=== PATIENT | female | born 1980 | race Caucasian/White ===

== ENCOUNTER 2018-06-20 14:21 | Emergency (ER) ==
[2018-06-20 14:31] VITALS: BP 122/86; TEMP 98.7; BMI 38.9
--- NOTE | 2018-06-20 15:00 | ED.PDOC ---
General ED Provider: Dr. CHERRI TENORIO Chief Complaint: Fall Stated Complaint: Slip/fall in bath last night - hit ribs R lower; also c/o 4 to 5 days UTI sx Time Seen by Physician: 14:58 Mode of Arrival: Walk-In Information Source: Patient Primary Care Provider: TOÑA COULTER Nursing and Triage Documentation Reviewed and Agree: Yes Does patient meet sepsis criteria?: No System Inflammatory Response Syndrome: Not Applicable Sepsis Protocol: For patient's 13 years and over: Temp is 96.8 and below OR 101 and greater Pulse >90 BPM Resp >20/minute Acutely Altered Mental Status Are patient's symptoms suggestive of a new infection, such as: -Pneumonia -Skin, Soft Tissue -Endocarditis -UTI -Bone, Joint Infection -Implantable Device -Acute Abdominal Infection -Wound Infection -Meningitis -Blood Stream Catheter Infection -Unknown Review of Systems - Review Of Systems Constitutional: Reports: No symptoms Eyes: Reports: No symptoms Ears, Nose, Mouth, Throat: Reports: No symptoms Respiratory: Reports: Cough (Hurts R ribs with cough) Cardiac: Reports: No symptoms GI: Reports: No symptoms : Reports: Burning, Dysuria, Frequency Musculoskeletal: Reports: Other (R rib pain with movement and deep breaths after slip/fall in tub last night) Skin: Reports: No symptoms Neurological: Reports: No symptoms Endocrine: Reports: No symptoms Hematologic/Lymphatic: Reports: No symptoms All Other Systems: Reviewed and Negative Past Medical History - Past Medical History Previously Healthy: Yes Endocrine: Reports: None Cardiovascular: Reports: None Respiratory: Reports: None Hematological: Reports: None Gastrointestinal: Reports: None Genitourinary: Reports: UTI (Occsional) Neuro/Psych: Reports: None Musculoskeletal: Reports: Other (Lupus) Cancer: Reports: Unknown Last Menstrual Period: none - Surgical History General Surgical History: Reports: Unknown - Family History Family History: Reports: Unknown - Social History Smoking Status: Current every day smoker Hx Substance Use: No Alcohol Screening: None - Immunizations Tetanus Shot up to Date: No Physical Exam - Physical Exam Appearance: Well-appearing Ill-appearing: None Pain Distress: Moderate Eyes: BOB, EOMI Neck: Supple Respiratory: Airway patent, Breath sounds clear, Breath sounds equal, Respirations nonlabored Cardiovascular: RRR, Pulses normal GI/: Soft, Nontender Musculoskeletal: Normal strength, ROM intact, No edema Skin: Warm, Dry, Normal color Neurological: Sensation intact, Motor intact, Alert, Oriented Psychiatric: Affect appropriate, Mood appropriate Critical Care Note - Critical Care Note Total Time (mins): 15 Course - Course Orders, Labs, Meds: Lab Review 06/20/18 06/20/18 15:49 15:49 Urine Color Yellow Urine Clarity Turbid Urine pH 5.5 Ur Specific [place] 1.010 Urine Protein Trace Urine Glucose (UA) 2+ Urine Ketones Negative Urine Blood 1+ Urine Nitrite Negative Urine Bilirubin Negative Urine Urobilinogen 0.2 Ur Leukocyte Esterase 1+ Urine Microscopic RBC 5-10 Urine Microscopic WBC Tntc Ur Squamous Epith Cells 5-10 Urine Bacteria 4+ Urine Test Negative Orders Category Date Time Status TEST URINE [URINE ] Stat LAB 06/20/18 15:49 Completed URINALYSIS C & S IF INDICATED Stat LAB 06/20/18 15:49 Completed URINE CULTURE Stat LAB 06/20/18 15:49 Received RIBS, UNILATERAL RIGHT Stat RADS 06/20/18 14:59 Completed Vital Signs: Temp Pulse Resp BP Pulse Ox 06/20/18 14:23 98.7 F 125 H 20 122/86 99 Departure - Departure Time of Disposition: 16:42 Disposition: HOME SELF-CARE Discharge Problem: Contusion of rib on right side Urinary tract infection Qualifiers: Urinary tract infection type: acute cystitis Instructions: Urinary Tract Infection in Women (ED), Rib Contusion (ED) Condition: Good Pt referred to PMD for follow-up: Yes (Follow up with primary care) IPMP verified?: No Additional Instructions: Take medications as prescribed; follow up with primary care in one week if not better. If fever developes (101.5 or above) return to ER. Prescriptions: Phenazopyridine HCl [Pyridium] 100 mg PO TID #9 tablet Sulfamethoxazole/Trimethoprim [Bactrim Ds Tablet] 1 each PO BID #20 tablet Tramadol HCl [Ultram] 50 mg PO Q6H #14 tablet Allergies/Adverse Reactions: Allergies metronidazole [From Flagyl] Adverse Reaction (Verified 06/20/18 14:41) Home Medications: Ambulatory Orders Albuterol Sulfate [Albuterol Sulfate Hfa] 2 puff IH PRN PRN 06/20/18 Amoxicillin 500 mg PO DAILY 06/20/18 Biotin 1,000 mcg PO DAILY 06/20/18 Duloxetine HCl [Cymbalta] 60 mg PO BID 06/20/18 Empagliflozin [Jardiance] 10 mg PO DAILY 06/20/18 Fish Oil/Borage/Flax/Om3,6,9 1 [[place] 3-6-9 Complex Softgel] 400 mg PO DAILY Folic Acid 1 mg PO DAILY 06/20/18 Ibuprofen [Motrin] 600 mg PO DAILY 06/20/18 Insulin Glargine,Hum.rec.anlog [Basaglar Kwikpen U-100] 64 unit SQ DAILY Insulin Lispro [Admelog] 12 unit SQ DIRECTED 06/20/18 Liraglutide [Victoza 3-Jesse] 1.8 mg SQ DAILY 06/20/18 Loratadine/Pseudoephedrine [Allergy Relief D 12-Hour Tab] 1 each PO DAILY Metformin HCl [Fortamet] 500 mg PO DAILY 06/20/18 Methocarbamol [Robaxin] 750 mg PO QID PRN 06/20/18 Methotrexate [Xatmep] 7.5 mg PO PERKINS 06/20/18 Norethindrone 0.35 mg PO DAILY 06/20/18 Ondansetron HCl [Zofran] 8 mg PO PRN PRN 06/20/18 Pantoprazole Sodium [Protonix] 40 mg PO QDAC 06/20/18 Phenazopyridine HCl [Pyridium] 100 mg PO TID #9 tablet 06/20/18 Pioglitazone HCl [Actos] 15 mg PO DAILY 06/20/18 Ranitidine HCl [Acid Control] 150 mg PO BID 06/20/18 Sulfamethoxazole/Trimethoprim [Bactrim Ds Tablet] 1 each PO BID #20 tablet 06/20 Tramadol HCl [Ultram] 50 mg PO Q6H #14 tablet 06/20/18 Zinc 50 mg PO DAILY 06/20/18
[2018-06-20 15:55] LABS: URINE PREGNANCY TEST NEGATIVE (NEGATIVE)
--- NOTE | 2018-06-20 16:28 | DI ---
EXAM: RIGHT RIBS HISTORY: Lower rib pain FINDINGS: Right ribs three-view. No displaced rib fracture is identified. No bony destruction, pne umothorax or soft tissue finding. IMPRESSION: No displaced rib fracture seen.
== END 2018-06-20 16:54 | disposition home or self-care (01) ==
LOC: ED 14:21
DX: S20.20XA Contusion of thorax, unspecified, initial encounter (principal); W18.2XXA Fall in (into) shower or empty bathtub, initial encounter; N30.00 Acute cystitis without hematuria; Z87.440 Personal history of urinary (tract) infections; F17.210 Nicotine dependence, cigarettes, uncomplicated
CPT/HCPCS: 81001; 81025; 87086; 87186; 99283

== ENCOUNTER 2018-08-22 10:14 | Outpatient (CLI) | END 2018-08-22 10:15 | disposition home or self-care (01) | LOC: LAB 10:14 | PROVIDERS: ATTEND Nurse Practitioner | DX: E11.65 Type 2 diabetes mellitus with hyperglycemia (principal); E61.2 Magnesium deficiency; D72.829 Elevated white blood cell count, unspecified | CPT/HCPCS: 36415; 80048; 83036; 83735; 85025 ==

== ENCOUNTER 2018-11-01 10:08 | Outpatient (CLI) | END 2018-11-01 10:09 | disposition home or self-care (01) | LOC: LAB 10:08 | PROVIDERS: ATTEND Nurse Practitioner | DX: E11.65 Type 2 diabetes mellitus with hyperglycemia (principal); E78.2 Mixed hyperlipidemia; F32.9 Major depressive disorder, single episode, unspecified; F41.9 Anxiety disorder, unspecified; J32.9 Chronic sinusitis, unspecified; K21.9 Gastro-esophageal reflux disease without esophagitis; R00.0 Tachycardia, unspecified; R07.89 Other chest pain; R19.8 Other specified symptoms and signs involving the digestive system and abdomen | CPT/HCPCS: 36415; 80053; 80061; 84443; 85025; 93005; 93010 ==